=== PATIENT | male | born 1955 ===

== ENCOUNTER 2020-04-30 07:34 | Day surgery (SDC) | payer OTHER ==
[~2020-04-30 07:34] MED LIST: TAMS0.4C PO
[2020-04-30] MEDS ORDERED: PERCOCET 5-3251 EACH PO (14:01)
[2020-04-30] MEDS ORDERED: POLY119PG PO (14:01)
[2020-04-30] MEDS ORDERED: NEURONTIN800 MG PO (14:01)
[2020-04-30] MEDS ORDERED: SURFAK240 M1 PO (14:02)
== END 2020-04-30 18:35 | disposition home or self-care (01) ==
LOC: CIR.AMB 07:34 → ADM 08:30 → CIR.AMB 08:30
PROVIDERS: ATTEND Surgery
DX: K42.0 Umbilical hernia with obstruction, without gangrene (principal); K43.9 Ventral hernia without obstruction or gangrene; K40.91 Unilateral inguinal hernia, without obstruction or gangrene, recurrent; K43.2 Incisional hernia without obstruction or gangrene